=== PATIENT | male | born 2000 | race Caucasian/White ===

== ENCOUNTER 2019-01-14 09:57 | Emergency (ER) | payer MEDICAID ==
[~2019-01-14] VITALS: Ht 182.9 cm; Wt 104.3 kg
[2019-01-14] MEDS ORDERED: fentaNYL INJECTION 100 MCG/2 ML AMP ONE (10:01)
[2019-01-14] MEDS ORDERED: fentaNYL INJECTION 100 MCG/2 ML AMP IVP STA (10:09)
[2019-01-14] MEDS ORDERED: cefTRIAXone FOR IV USE 1,000 MG in WATER (STERILE) FOR INJECTION 10 ML IV ONE (10:15)
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
[2019-01-14] MEDS ORDERED: TETANUS,DIPTH,PERTUSS P/F (BOOSTRIX) 0.5 ML VIAL IM ONE (11:00)
[2019-01-14] MEDS ORDERED: CEPH500T PO (12:04)
[2019-01-14] MEDS ORDERED: ACHD5005 PO (12:04)
[2019-01-14 12:14] VITALS: BP 135/99
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
== END 2019-01-14 12:14 | disposition home or self-care (01) ==
LOC: EDUNIT# 09:57 → ER 09:58
DX: S81.032A Puncture wound without foreign body, left knee, initial encounter (principal); F12.10 Cannabis abuse, uncomplicated; Z90.89 Acquired absence of other organs; W32.0XXA Accidental handgun discharge, initial encounter
CPT/HCPCS: 73562; 90715